=== PATIENT | female | born 1955 | race American Indian/Alaskan Native ===

== ENCOUNTER → 2016-09-30 | Outpatient (CLI) | payer MEDICARE, MEDICAID ==
[~2016-09-30] MED LIST: ALIVE WOMEN S PO; ASPI-496 PO; CALCIUM + D3 PO; CALCIUM PO; CHOL200024 PO; CYAN2500 PO; ETAN50DI SC; HYDR500C3 PO; IBUP800T PO; LOSA1TAB16 PO; LOSARTEN PO; METH-356 PO; MULT-516 PO; PARO20TA4 PO; PRED5TAB PO; SOLI10TA PO; [UNRECOGNIZED DRUG - OTHER] PO
[2016-09-30 12:17] LABS: ASPARTATE AMINO TRANSFERASE 22 U/L (15-37); BLOOD UREA NITROGEN 28 mg/dL (7-18)
== END | disposition home or self-care (01) ==
LOC: STAR 10:48
PROVIDERS: ATTEND Urology
DX: Z01.818 Encounter for other preprocedural examination (principal); C67.9 Malignant neoplasm of bladder, unspecified
CPT/HCPCS: 36415; 80053; 81001; 87086; 93005

== ENCOUNTER 2016-11-19 09:19 | Day surgery (SDC) | payer MEDICARE, MEDICAID ==
[~2016-11-19] VITALS: Ht 152.4 cm; Wt 59.0 kg
[2016-11-19] MEDS ORDERED: LACTATED RINGERS 1,000 ML IV SCH (09:43)
[2016-11-19 09:52] VITALS: BP 88/61
[2016-11-19] MEDS ORDERED: PLEASE ENTER HEIGHT AND WEIGHT MC SCH (10:00)
[2016-11-19] MEDS ORDERED: DEXAMETHASONE 4 MG/ML, 1ML ONE (10:55)
[2016-11-19] MEDS ORDERED: CEFAZOLIN 1,000 MG ONE (10:55)
[2016-11-19] MEDS ORDERED: PROPOFOL 10 MG/ML, 20ML ONE (10:55)
[2016-11-19] MEDS ORDERED: ONDANSETRON 2MG/ML, 2ML ONE (10:55)
[2016-11-19] MEDS ORDERED: PROMETHAZINE 25 MG/ML, 1ML IV PRN (11:30)
[2016-11-19] MEDS ORDERED: ALBUTEROL SULFATE 2.5 MG/3 ML NPPB PRN (11:30)
[2016-11-19] MEDS ORDERED: ONDANSETRON 2MG/ML, 2ML IVPush PRN (11:30)
[2016-11-19] MEDS ORDERED: hydrALAzine 20 MG/ML, 1ML IV PRN (11:30)
[2016-11-19] MEDS ORDERED: EPHEDRINE 50 MG/ML, 1ML IVPush PRN (11:30)
[2016-11-19] MEDS ORDERED: METOPROLOL 1 MG/ML, 5ML IV PRN (11:30)
[2016-11-19] MEDS ORDERED: LABETALOL 5MG/ML, 20ML IV PRN (11:30)
[2016-11-19] MEDS ORDERED: MIDAZOLAM 1 MG/ML, 2ML IV PRN (11:30)
[2016-11-19] MEDS ORDERED: MEPERIDINE/PF 25MG/0.5ML IVPush PRN (11:30)
[2016-11-19] MEDS ORDERED: OXYcodone 5 MG/5 ML ORAL.SOL UDC PO PRN (11:30)
[2016-11-19] MEDS ORDERED: HYDROmorphone 1 MG/ML, 1ML IV PRN (11:30)
[2016-11-19] MEDS ORDERED: ACETAMINOPHEN 325 MG TABLET PO PRN (11:30)
[2016-11-19] MEDS ORDERED: MIDAZOLAM 1 MG/ML, 2ML ONE (12:07)
[2016-11-19] MEDS ORDERED: FENTANYL PF 250 MCG/5ML ONE (12:07)
[2016-11-19] MEDS ORDERED: FENTANYL PF 100 MCG/2ML ONE (12:22)
[2016-11-19] MEDS ORDERED: OPIUM/BELLADONNA SUPP.RECT 16.2-30 MG ONE (12:22)
[2016-11-19] MEDS: FENTANYL PF 100 MCG/2ML IV PRN ×2 (12:25→12:38)
[2016-11-19] MEDS ORDERED: OPIUM/BELLADONNA SUPP.RECT 16.2-30 MG PR PRN (12:30)
[2016-11-19] MEDS ORDERED: OXYcodone 5 MG/5 ML ORAL.SOL UDC ONE (12:31)
== END 2016-11-19 14:45 | disposition home or self-care (01) ==
LOC: OUT 09:19
PROVIDERS: ATTEND Urology
DX: N30.11 Interstitial cystitis (chronic) with hematuria (principal); Z85.51 Personal history of malignant neoplasm of bladder; I10 Essential (primary) hypertension; M06.9 Rheumatoid arthritis, unspecified; Z86.19 Personal history of other infectious and parasitic diseases; Z82.5 Family history of asthma and other chronic lower respiratory diseases; Z80.6 Family history of leukemia; Z80.3 Family history of malignant neoplasm of breast; Z82.49 Family history of ischemic heart disease and other diseases of the circulatory system
CPT/HCPCS: 52234; 88305; J0690; J1100; J2250; J2405; J2704; J3010; J7120

== ENCOUNTER 2017-05-04 14:50 | Emergency (ER) | payer MEDICAID, MEDICARE ==
[~2017-05-04] VITALS: Ht 152.4 cm; Wt 60.3 kg
[~2017-05-04 14:50] MED LIST changes: -ETAN50DI SC; +ETAN50DI2 SC; +IBUP-1223 PO; -IBUP800T PO; -LOSA1TAB16 PO; +LOSA1TAB19 PO; -SOLI10TA PO; +SOLI10TA2 PO
[2017-05-04 14:53] VITALS: BP 94/62
== END 2017-05-04 15:54 | disposition home or self-care (01) ==
LOC: ED 15:42
DX: J01.10 Acute frontal sinusitis, unspecified (principal); H60.92 Unspecified otitis externa, left ear; I10 Essential (primary) hypertension; Z85.54 Personal history of malignant neoplasm of ureter; Z87.891 Personal history of nicotine dependence
CPT/HCPCS: 99283

== ENCOUNTER 2018-02-20 11:44 | Emergency (ER) | payer MEDICARE ==
[~2018-02-20] VITALS: Ht 152.4 cm; Wt 58.0 kg
[2018-02-20 12:02] VITALS: BP 112/75
[2018-02-20] MEDS ORDERED: KETOROLAC 30 MG/1 ML ONE (12:52)
[2018-02-20] MEDS ORDERED: KETOROLAC 30 MG/1 ML IM ONE (13:00)
== END 2018-02-20 13:24 | disposition home or self-care (01) ==
LOC: ED 13:18
DX: M79.672 Pain in left foot (principal); M06.9 Rheumatoid arthritis, unspecified; I10 Essential (primary) hypertension; Z87.891 Personal history of nicotine dependence
CPT/HCPCS: 96372; 99283; J1885

== ENCOUNTER 2018-06-19 12:11 | Day surgery (SDC) | payer MEDICARE ==
[~2018-06-19] VITALS: Ht 137.2 cm; Wt 61.8 kg
[2018-06-19 12:57] VITALS: BP 100/74
[2018-06-19 13:18] LABS: MICROSCOPIC NOT IND
[2018-06-19 13:24] LABS: CULTURE INDICATED? NO
[2018-06-19 13:38] LABS: ALANINE AMINOTRANSFERASE 23 U/L (12-78); ALBUMIN 3.7 g/dL (3.4-5.0); ANION GAP 8 mmol/L (5-15); CALCIUM 8.6 mg/dL (8.5-10.1); CHLORIDE 104 mmol/L (98-107); CREATININE 0.86 mg/dL (0.55-1.02)
[2018-06-19 13:40] LABS: ALKALINE PHOSPHATASE 31 U/L (45-117); BILIRUBIN,TOTAL 0.3 mg/dL (0.2-1.0)
[2018-06-19 13:42] LABS: MD YES; MEAN CORPUSCULAR HEMOGLOBIN 39.3 pg (27.0-34.8); MEAN CORPUSCULAR HGB CONC 33.5 g/dL (32.4-35.8); MEAN CORPUSCULAR VOLUME 117.4 fL (80-100); MEAN PLATELET VOLUME 8.2 fL (7.4-10.4); PLATELET COUNT 855 x10^3/uL (130-400); RED BLOOD COUNT 3.04 x10^6/uL (3.82-5.3); RED CELL DISTRIBUTION WIDTH 15.8 % (9.6-15.2)
[2018-06-19 13:46] LABS: BAND#(MANUAL) 0.11 x10^3/uL; BANDS%(MANUAL) 3 % (0-7); BASOS#(MANUAL) 0.04 x10^3/uL (0-0.1); BASOS% (MANUAL) 1 % (0-1); LYMPH#(MANUAL) 2.07 x10^3/uL (1-3.4); LYMPHS% (MANUAL) 59 % (22-44); MONOS#(MANUAL) 0.25 x10^3/uL (0.3-2.7); MONOS% (MANUAL) 7 % (2-9); SEG#(MANUAL) 1.05 x10^3/uL (1.8-6.8); SEGS% (MANUAL) 30 % (42-75)
[2018-06-19 13:47] LABS: ANISOCYTOSIS 1+; OVALOCYTES 1+; POLYCHROMASIA 1+
[2018-06-19 13:48] LABS: <PLATELET ESTIMATE> INCREASED; LARGE PLATELETS 1+
[2018-06-19] MEDS ORDERED: FENTANYL PF 250 MCG/5ML ONE (13:54)
[2018-06-19] MEDS ORDERED: ACETAMINOPHEN 650 MG/20.3 ML UDC ONE (15:19)
[2018-06-19] MEDS ORDERED: CEFAZOLIN 1,000 MG ONE (15:30)
[2018-06-19] MEDS ORDERED: ONDANSETRON 2MG/ML, 2ML ONE (15:30)
[2018-06-19] MEDS ORDERED: DEXAMETHASONE 4 MG/ML, 1ML ONE (15:30)
[2018-06-19] MEDS ORDERED: ACETAMINOPHEN 325 MG TABLET PO PRN (15:30)
[2018-06-19] MEDS ORDERED: PROPOFOL 10 MG/ML, 20ML ONE (15:30)
== END 2018-06-19 16:40 | disposition home or self-care (01) ==
LOC: OUT 12:11
PROVIDERS: ATTEND Urology
DX: C67.2 Malignant neoplasm of lateral wall of bladder (principal); N30.80 Other cystitis without hematuria; Z88.0 Allergy status to penicillin; Z88.5 Allergy status to narcotic agent; M06.9 Rheumatoid arthritis, unspecified; Z79.899 Other long term (current) drug therapy; Z86.19 Personal history of other infectious and parasitic diseases; Z87.891 Personal history of nicotine dependence; Z98.890 Other specified postprocedural states; Z82.49 Family history of ischemic heart disease and other diseases of the circulatory system; Z82.3 Family history of stroke; Z80.6 Family history of leukemia
CPT/HCPCS: 36415; 52224; 52234; 80053; 81003; 85025; 88305; 88307; 93005; J0690; J1100; J2405; J2704; J3010

== ENCOUNTER 2019-04-30 12:05 | Day surgery (SDC) | payer MEDICARE ==
[~2019-04-30] VITALS: Ht 152.4 cm; Wt 61.4 kg
[~2019-04-30 12:05] MED LIST changes: +CALC-126 PO; +LACT1CAP35 PO; -METH-356 PO; +METH10TA2 PO; +folic acid PO
[2019-04-30] MEDS ORDERED: LACTATED RINGERS 1,000 ML IV SCH (12:44)
[2019-04-30] MEDS ORDERED: MIDAZOLAM 1 MG/ML, 2ML ONE (15:00)
[2019-04-30] MEDS ORDERED: FENTANYL PF 100 MCG/2ML ONE (15:00)
[2019-04-30] MEDS ORDERED: LIDOCAINE-MPF 2% ,5ML ONE (15:51)
[2019-04-30] MEDS ORDERED: CEFAZOLIN 1,000 MG ONE (16:23)
[2019-04-30] MEDS ORDERED: DEXAMETHASONE 4 MG/ML, 1ML ONE (16:23)
[2019-04-30] MEDS ORDERED: PROPOFOL 10 MG/ML, 20ML ONE (16:23)
[2019-04-30] MEDS ORDERED: ONDANSETRON 2MG/ML, 2ML ONE (16:23)
[2019-04-30] MEDS ORDERED: PROMETHAZINE 25 MG/ML, 1ML IV PRN (16:30)
[2019-04-30] MEDS ORDERED: ONDANSETRON ODT 8 MG PO PRN (16:30)
[2019-04-30] MEDS ORDERED: HYDROmorphone 2 MG/ML, 1ML IVPush PRN (16:30)
[2019-04-30] MEDS ORDERED: PROMETHAZINE 25 MG SUPP PR PRN (16:30)
[2019-04-30] MEDS ORDERED: ACETAMINOPHEN 325 MG TABLET PO PRN (16:30)
[2019-04-30] MEDS ORDERED: FENTANYL PF 100 MCG/2ML IV PRN (16:30)
[2019-04-30] MEDS ORDERED: ONDANSETRON 2MG/ML, 2ML IV PRN (16:30)
[2019-04-30] MEDS ORDERED: OXYcodone 5 MG/5 ML ORAL.SOL UDC PO PRN (16:30)
[2019-04-30] MEDS ORDERED: LORazepam 2 MG/ML, 1ML IVPush PRN (16:30)
[2019-04-30] MEDS ORDERED: PHENAZOPYRIDINE 200 MG TABLET ONE (16:41)
[2019-04-30] MEDS ORDERED: PHENAZOPYRIDINE 200 MG TABLET PO PRN (17:00)
== END 2019-04-30 17:55 | disposition home or self-care (01) ==
LOC: OUT 12:05
PROVIDERS: ATTEND Urology
DX: N32.89 Other specified disorders of bladder (principal); N30.10 Interstitial cystitis (chronic) without hematuria; I10 Essential (primary) hypertension; Z85.51 Personal history of malignant neoplasm of bladder; Z88.0 Allergy status to penicillin; Z88.5 Allergy status to narcotic agent
CPT/HCPCS: 52204; 88305; 88342; J0690; J1100; J2250; J2405; J2704; J3010; J7120